=== PATIENT | male | born 1965 | race African-American/Black ===

== ENCOUNTER → 2021-01-23 20:46 | Outpatient (CLI) | payer BC ==
[2020-10-19 11:42] VITALS: BMI 43.3
[~2021-01-23 20:46] MED LIST: COREG 3.1253.125 MG PO; GABAPENTIN300 MG PO; GLUCOPHAGE1000 MG PO; GLUCOTROL 5 MG T5 MG PO; IBUPROFEN800 MG PO; LIPITOR20 MG PO; LISINOPRIL20 MG PO
[2021-01-23 21:17] LABS: BASOPHILS 0.4 % (0-2); EOSINOPHILS 0.9 % (0-7); HEMOGLOBIN 13.8 g/dL (13.5-17.5); IMMATURE GRANULOCYTES 0.1 % (0-5); LYMPHOCYTE ABS# 2.52 10x3/uL (1.32-3.57); LYMPHOCYTES 28.3 % (15-50); MCH 31.3 pg (26.0-34.0); MCHC 32.9 g/dL (31.0-37.0); MCV 95.2 fL (80.0-100.0); MEAN PLATELET VOLUME 10.2 fL (7.4-10.4); MONOCYTES 10.3 % (2-11); NEUTROPHIL ABS# 5.35 10x3/uL (1.78-5.38); PLATELET COUNT 245 10x3/uL (130-400); RBC 4.41 10x6/uL (4.20-6.10); RDW 14.7 % (11.5-14.5); WBC 8.9 10x3/uL (4.8-10.8)
[2021-01-23 22:30] LABS: ERYTHROCYTE SEDIMENTATION RATE 8 mm/hr (0-20)
== END | disposition home or self-care (01) ==
LOC: D.LABREF 20:46
PROVIDERS: ATTEND Nurse Practitioner Family
DX: M25.561 Pain in right knee (principal)